=== PATIENT | female | born 2000 | race Two or more races ===

== ENCOUNTER 2024-08-04 20:19 | Emergency (ER) | payer MEDICAID, SELFPAY ==
--- NOTE | 2024-08-04 21:28 | PC.NURSE ---
Addendum entered by Eve Kaba 08/04/24 21:51: called pt again, no answer @ [id number] Original Note: called for pt from lobby/outside, no answerx1 @ [id number]
== END 2024-08-04 22:08 | disposition left against medical advice (07) ==
LOC: SERX 22:23
PROVIDERS: Emergency Provider Emergency Medicine
DX: Z53.21 Procedure and treatment not carried out due to patient leaving prior to being seen by health care provider (principal)

== ENCOUNTER 2024-08-04 22:15 | Emergency (ER) | payer MEDICAID, SELFPAY ==
[2024-08-04 22:15] VITALS: PULSE 93; RESP 20; O2SAT 99
[2024-08-04 23:18] VITALS: BP 137/84; PULSE 98; RESP 18; TEMP 37.8; O2SAT 98; BMI 38.2
[2024-08-05] MEDS: ALBUTEROL/IPRATROPIUM (Duoneb) RT SOL 3 ML NEBU 6 ML INH (00:13)
--- NOTE | 2024-08-05 00:16 | PD.ASTHM ---
ED Asthma RME/HPI General Chief Complaint: Asthma Stated Complaint: SOB/Hx asthma/cough Time Seen by Provider: 08/04/24 23:54 Arrival date/time: 08/04/24 22:15 24F with history of asthma presents to ED with 1 day of cough and SOB. Limitations: no limitations Related Data Allergies Allergy/AdvReac Type Severity Reaction Status Date / Time No Known Allergies Allergy Verified 04/05/24 04:49 Review of Systems Review of Systems Systems Reviewed: All systems reviewed, normal except as documented Constitutional Constitutional: Reports system reviewed and no additional complaints, except as documented, Denies fever(s) and Denies headache(s) ENT Ears, Nose, Mouth, and Throat: Denies disequilibrium and Denies headache(s) Cardiovascular Cardiovascular: Reports system reviewed and no additional complaints, except as documented, Denies chest pain and Reports dyspnea Respiratory Respiratory: Reports system reviewed and no additional complaints, except as documented, Reports as per HPI, Reports cough and Reports dyspnea Gastrointestinal Gastrointestinal: Reports system reviewed and no additional complaints, except as documented, Denies abdominal pain, Denies nausea and Denies vomiting Neurologic Neurologic: Reports system reviewed and no additional complaints, except as documented, Denies confusion, Denies disequilibrium and Denies headache(s) Psychiatric Psychiatric: Denies confusion Past Medical History Social History SMOKING STATUS: Never smoker ED Exam General Limitations: Present no limitations General appearance: Present alert and in no apparent distress Head Head exam: Present atraumatic Eye Eye exam: Present normal appearance, PERRL and EOMI ENT ENT exam: Present normal exam, normal oropharynx and mucous membranes moist Neck Neck exam: Present normal inspection, full ROM and trachea midline Chest Chest inspection: Present normal inspection and symmetric chest wall rise Respiratory Respiratory exam: Present wheezes (R) Cardiovascular Cardiovascular exam: Present regular rate, normal rhythm and normal heart sounds Abdominal Exam Abdominal exam: Present soft and normal bowel sounds Extremities Exam Extremities exam: Present normal inspection and full ROM Back Exam Back exam: Present normal inspection and full ROM Neurological Exam Neurological exam: Present alert, oriented X3 and CN II-XII intact Psychiatric Psychiatric exam: Present normal affect and normal mood Skin Skin exam: Present warm, dry, intact and normal color Course Quality Measures none Orders Category Date Time Status Bedside COVID-19 Antigen Test NOW Care 08/04/24 23:26 Active Bedside Influenza A&B Antigen Test NOW Care 08/04/24 23:26 Completed Albuterol/Ipratr Rt Ana [Duoneb Rt Ana] Med 08/04/24 23:55 Discontinued 6 ml INH X1 ONE Dexamethasone Inj [Decadron Inj] Med 08/04/24 23:55 Discontinued 10 mg PO X1 ONE predniSONE Med 08/04/24 23:55 Discontinued 40 mg PO X1 ONE Vital Signs Vital signs: Vital Signs Temperature 100.1 F 08/04/24 23:18 Pulse Rate 98 08/04/24 23:18 Respiratory Rate 18 08/04/24 23:18 Blood Pressure 137/84 H 08/04/24 23:18 Pulse Oximetry (%) 98 08/04/24 23:18 Oxygen Delivery Method Room Air 08/04/24 23:18 Asthma MDM Narrative MDM Narrative:: 24F with history of asthma presents to ED with 1 day of cough and SOB. Physical exam reveals clear ENT, but some wheezing in R lung. Patient is afebrile, calm, and alert. Swabs neg. Breathing tx/steroids relieved symptoms. Likely viral URi triggering mild asthma exacerbation. Patient data External records reviewed:: [facility] previous records Clinical information provided by:: patient Social determinants that could affect healthcare access:: none Patient has the following chronic illnesses:: asthma How is presenting disease/condition affected by chronic disease/condition?: exacerbated by Evaluation data The following diagnostics were reviewed and interpreted by me:: other (specify) (none) Lab and/or radiology exams considered but not ordered:: not ordered Interpretation Summary: n/a Medications / Prescriptions Medications or Prescriptions considered but not ordered:: ordered Medication administrations:: Medication Administration History Discontinued Medications Albuterol/Ipratropium (Albuterol/Ipratropium (Duoneb) Rt Ana 3 Ml Nebu) 6 ml INH X1 ONE Stop: 08/04/24 23:56 Last Admin: 08/05/24 00:13 Dose: 6 ml Documented By: PAR Dexamethasone Sodium Phosphate (Dexamethasone Sod Phos Inj 10 Mg/Ml Vial) 10 mg PO X1 ONE Stop: 08/04/24 23:56 Prednisone (Prednisone 20 Mg Tablet) 40 mg PO X1 ONE Stop: 08/04/24 23:56 Consultations Consultation(s) initiated? (list below): No Diagnosis Differential diagnosis asthma: Acute exacerbation, Status asthmaticus, Acute asthmatic bronchitis, PE, Pneumonia, COPD exacerbation, Pulmonary edema systolic, Pulmonary edema dystolic, ARDS, Pneumothorax, Foreign body in trachea and other (URI) Most likely diagnosis given after review of the tests above:: asthma exacerbation and URI Admission Indicated Admission indicated?: not indicated Admission Request Was there a request for admission?: No Disposition Plan Disposition Plan: Discharge Discharge Attestation Discharge Attestation: The patient and all family members were given an opportunity to ask questions and understood the discharge instructions. Discharge instructions specifically effects, indications for sooner follow up or return to the emergency department, and the expected course of current diagnosis. Patient condition: Stable Discharge Plan Plan Patient Disposition: HOME (Self Care) Disposition Comment: STable Problem List Clinical Impression: Asthma with acute exacerbation, URI (upper respiratory infection) Patient/Caregiver Discharge Instructions Additional Instructions: Please follow-up with PCP within 24-48 hours and return immediately if symptoms worsen. Ibuprofen/Tylenol can be used simultaneously for greater fever/pain control. Benadryl is good for cough, congestion, and sleep. Print Language: Persian Stand Alone Forms: Patient Portal Info Letter AMARJIT/PANTERA Supervising Physician AMARJIT/PANTERA Supervising Physician: Dr. Choe
[2024-08-05 00:18] VITALS: PULSE 115; RESP 20; O2SAT 99
[2024-08-05] MEDS: DEXAMETHASONE SOD PHOS INJ 10 MG/ML VIAL PO (00:32)
[2024-08-05] MEDS: predniSONE 20 MG TABLET 40 MG PO (00:32)
== END 2024-08-05 01:20 | disposition home or self-care (01) ==
LOC: SERX 08-05 03:35
PROVIDERS: Emergency Provider Emergency Medicine
DX: J45.901 Unspecified asthma with (acute) exacerbation (principal); J06.9 Acute upper respiratory infection, unspecified
CPT/HCPCS: 87400; 87811; 94640; 99283; A9270; J1100; J7512